=== PATIENT | female | born 1960 | race Two or more races ===

== ENCOUNTER → 2020-06-15 | Emergency (ER) | payer MEDICARE, OTHER ==
[~2020-06-15] VITALS: Ht 165.1 cm; Wt 87.1 kg
[~2020-06-15] MED LIST: ASPI-1498 PO; AZIL40TA PO; IBUPROFEN 600 MG TABLET ONE; IBUPROFEN 600 MG TABLET PO ONE; MAGN400T26 PO; METO-357 PO; NABU-139 PO; POTASSIUM CHLORIDE 20 MEQ TAB.PRT.SR PO ONE; VORT10TA PO
--- NOTE | 2020-06-15 16:09 | NUR ---
THE PATIENT CAME TO ER FOR C/O CHEST PAIN AND BODY PAIN X "WEEKS". THE PATIENT RATES PAIN 10/10. IN ROOM AIR AND DENIES SOB. RESPIRATION REGULAR AND UNLABORED. THE PATIENT IS ATTACHED ON A MONITOR. WARM BLANKET PROVIDED FOR COMOFRT. WILL CONTINUE TO MONITOR.
--- NOTE | 2020-06-15 16:10 | NUR ---
THE PATIENT STATED THAT SHE HAS BEEN HAVING ON AND OFF CHEST PAIN FOR WEEKS. THE PATIENT COULD NOT BE MORE EXACT AND STATED " WEEKS.". DR EDMOND IS AWARE.
[2020-06-15 17:03] LABS: BASOPHILS # (AUTO) 0.1 /CMM (0.0-0.2); EOSINOPHILS % (AUTO) 1.8 % (0.0-6.0); HEMATOCRIT 42 % (33-45); LYMPHOCYTES # (AUTO) 2.8 /CMM (0.8-4.8); LYMPHOCYTES % (AUTO) 38.7 % (20.0-44.0); MEAN CORPUSCULAR HGB CONC 34 g/dl (31.0-36.0); MEAN CORPUSCULAR VOLUME 83 fL (82-100); MONOCYTES # (AUTO) 0.7 /CMM (0.1-1.30); MONOCYTES % (AUTO) 9.2 % (2.0-12.0); NEUTROPHILS # (AUTO) 3.5 /CMM (1.8-8.9); NEUTROPHILS % (AUTO) 49.3 % (43.0-81.0); PLATELET COUNT (AUTO) 259 /CMM (150-450); RED BLOOD CELL COUNT(AUTO) 5.06 MIL/uL (4.0-5.2); WHITE BLOOD COUNT (AUTO) 7.2 K/uL (4.3-11.0)
[2020-06-15 17:19] LABS: CALCIUM, SERUM 8.4 mg/dL (8.5-10.1); CARBON DIOXIDE 29 mmol/L (21-32); CHLORIDE 105 mmol/L (98-107); CREATININE 0.8 mg/dL (0.6-1.3); GLUCOSE 140 mg/dL (74-106); SODIUM SERUM 143 mmol/L (136-145); UREA NITROGEN, BLOOD 12 mg/dL (7-18)
[2020-06-15 17:33] LABS: ALANINE AMINOTRANSFERASE 51 U/L (12-78); ALBUMIN 3.6 g/dL (3.4-5.0); ALKALINE PHOSPHATASE 108 U/L (46-116); ASPARTATE AMINOTRANSFERASE 35 U/L (15-37); B-TYPE NATRIURETIC PEPTIDE 41 PG/ML (0-125); BILIRUBIN,TOTAL 0.2 mg/dL (0.2-1.0); TOTAL PROTEIN, SERUM 7.1 g/dL (6.4-8.2)
[2020-06-15 18:52] VITALS: BP 131/80
--- NOTE | 2020-06-15 18:53 | NUR ---
The patient is alert and oriented x4. Denies SOB. Respiration regular and unlabored. States general body pain /. Motrin 600 mg given as ordered. Patient discharged to home in stable condition. Written and verbal after care instructions given. Patient verbalizes understanding of instruction. The patient left ER in stable condition.
== END | disposition home or self-care (01) ==
LOC: ER 16:15
DX: R07.9 Chest pain, unspecified (principal); E87.6 Hypokalemia; R94.31 Abnormal electrocardiogram [ECG] [EKG]; M79.7 Fibromyalgia; Z86.16 Personal history of COVID-19; I10 Essential (primary) hypertension; Z79.82 Long term (current) use of aspirin
CPT/HCPCS: 36415; 71045-TC; 80048-TC; 80076-TC; 83735-TC; 83880; 84484-TC; 85025-TC; C9803